=== PATIENT | female | born 1965 | race Caucasian/White ===

== ENCOUNTER 2024-08-08 12:25 | Emergency (ER) | payer OTHER ==
[~2024-08-08] VITALS: Ht 165.1 cm; Wt 59.1 kg
[2024-08-08 12:47] VITALS: BP 106/71; PULSE 84; RESP 18; TEMP 98.7; O2SAT 99
== END 2024-08-08 16:34 | disposition left against medical advice (07) ==
LOC: ER 12:26
DX: R68.83 Chills (without fever) (principal); R11.2 Nausea with vomiting, unspecified; R42 Dizziness and giddiness; R53.1 Weakness; Z88.5 Allergy status to narcotic agent; Z53.21 Procedure and treatment not carried out due to patient leaving prior to being seen by health care provider